=== PATIENT | male | born 1965 | race Caucasian/White ===

== ENCOUNTER → 2020-05-09 13:20 | Outpatient (CLI) | payer OTHER, SELFPAY ==
[2020-05-09 15:08] LABS: Coronavirus 19 IgG Antibody Negative (Negative); Coronavirus 19 IgM Antibody Negative (Negative)
== END ==
PROVIDERS: Visit Provider Internal Medicine Gastroenterology
DX: Z01.818 Encounter for other preprocedural examination (principal); Z03.818 Encounter for observation for suspected exposure to other biological agents ruled out; Z12.11 Encounter for screening for malignant neoplasm of colon
CPT/HCPCS: 86328

== ENCOUNTER 2022-05-05 07:00 | Outpatient (RCR) | payer BC, SELFPAY | END 2022-06-04 16:43 | disposition home or self-care (01) | LOC: PT 07:00 | PROVIDERS: Visit Provider Physician Assistant | DX: M77.11 Lateral epicondylitis, right elbow (principal) | CPT/HCPCS: 20561; 97035; 97110; 97140; 97163; 97164 ==

== ENCOUNTER 2024-04-01 10:23 | Outpatient (CLI) | payer BC, SELFPAY ==
[2024-04-01 16:35] LABS: Basophils # 0.1 K/mm3 (0-0.2); Eosinophils # 0.1 K/mm3 (0.0-0.4); Hemoglobin 15.7 g/dL (14.1-18.0); Lymphocytes # 1.6 K/mm3 (0.7-4.5); Mean Corpuscular HGB Conc 33.5 g/dL (31.8-35.4); Mean Corpuscular Hemoglobin 28.4 pg (27.0-31.2); Mean Corpuscular Volume 84.8 fl (80-94); Mean Platelet Volume 8.7 fl (7.4-10.4); Monocytes # 0.5 K/mm3 (0.1-1.0); Neutrophils # 3.4 K/mm3 (1.8-7.8); Platelet Count 184 K/mm3 (142-424); Red Blood Count 5.54 M/mm3 (4.60-6.20); Red Cell Distribution Width 13.5 % (11.5-17.5); White Blood Count 5.6 K/mm3 (4.8-10.8)
[2024-04-01 17:06] LABS: Alanine Aminotransferase 44 U/L (12-78); Albumin Level 4.8 g/dl (3.5-5.0); Albumin/Globulin Ratio 2.2 (1.1-1.8); Alkaline Phosphatase 71 U/L (38-126); Anion Gap 13.6 mEq/L (5-15); Aspartate Amino Transferase 54 U/L (17-59); Bilirubin,Total 0.9 mg/dl (0.2-1.3); Blood Urea Nitrogen 16 mg/dl (9-20); Calcium 9.6 mg/dl (8.4-10.2); Carbon Dioxide 29 mmol/L (22.0-30.0); Chloride 105 mmol/L (98-107); Chol/HDL Ratio 5.3 (1-3.5); Cholesterol 213 mg/dl (140-200); Estimated Glomerular Filt Rate 77 ml/min (>60); GFR (African American) 93 ML/MIN (>60); Globulin 2.2 g/dL (1.3-3.2); Glucose 63 mg/dl (74-100); HDL Cholesterol 40 mg/dl (40-60); Potassium 5.6 mmoL/L (3.5-5.1); Sodium 142 mmol/L (136-145); Triglycerides 154 mg/dl (30-150); VLDL Cholesterol 31 mg/dL (0-40)
[2024-04-01 17:17] LABS: Direct LDL Cholesterol 154.93 mg/dL (100-129)
[2024-04-01 17:37] LABS: Thyroid Stimulating Hormone 5.26 uIU/mL (0.465-4.68)
[2024-04-01 22:57] LABS: HIV (1&2) Antibody Rapid NONREACTIVE (NONREACTIVE)
[2024-04-02 05:11] LABS: HCV Ab Non Reactive (Non Reactive)
[2024-04-04 08:50] LABS: T4 (Thyroxine) 7.1 ug/dl (5.53-11.0)
== END 2024-04-01 23:59 | disposition home or self-care (01) ==
LOC: LAB.DROPOF 04-04 10:23
PROVIDERS: PCP Family Medicine; Visit Provider Family Medicine
DX: Z12.5 Encounter for screening for malignant neoplasm of prostate (principal); I10 Essential (primary) hypertension; R79.89 Other specified abnormal findings of blood chemistry
CPT/HCPCS: 80050; 80053; 80061; 84436; 84443; 85025; 86803; 87389; G0103